=== PATIENT | male | born 1960 | race Caucasian/White ===

== ENCOUNTER → 2018-08-12 | Outpatient (CLI) | payer OTHER ==
[~2018-08-12] MED LIST: AML5 PO; AMLO-125 PO
--- NOTE | 2018-08-12 13:51 | RADIOLOGY IMAGING REPORT ---
FACILITY: [facility] - [place] PATIENT NAME: Rashaun Rogel : 1960 MR: [id number] V: [id number] EXAM DATE: ORDERING PHYSICIAN: JC CEDILLO TECHNOLOGIST: Location: [facility] Patient: Rashaun Rogel : 1960 Visit/Account:[id number] Date of Sevice: 08/12/2018 Exam type: ARTERIAL BILAT LOWER EXT History: Leg pain and hyperlipidemia Comparison: None. Findings: There is triphasic flow seen throughout the lower extremity arterial trees bilaterally Right leg peak systolic velocities in centimeters per second are as follows: DRY WALL SPRAYER 82.8 Profunda femoral 65.9 Superficial femoral proximal 99.6 Superficial femoral mid 78.2 Superficial femoral distal 84.3 Popliteal proximal 61.3 Popliteal distal 69.7 Peroneal 49.5 Posterior tibial proximal 66 Posterior tibial mid 56.4 Posterior tibial distal 66.7 Anterior tibial 52.1 Dorsalis pedis 40.3 Left leg peak systolic velocities in centimeters per second are as follows DRY WALL SPRAYER 97.8 Profunda femoral is 8.4 SFA proximal 104 SFA mid 78.8 SFA distal 75.4 Popliteal proximal 53 Popliteal healed distal 48.9 Peroneal 58.4 Posterior tibial 65.9 Posterior tibial mid 56.4 Posterior tibial distal 53 Anterior tibial 68.6 Dorsalis pedis 52.3 IMPRESSION: 1. There is triphasic flow seen throughout the lower extremity tree bilaterally with no abnormal xiomara ocities noted Report Dictated By: Zeinab Nicole MD at 08/12/2018 1:42 PM Report E-Signed By: Zeinab Nicole MD at 08/12/2018 1:45 PM WSN:[id number]
== END ==
LOC: US 00:19
PROVIDERS: ATTEND Internal Medicine
DX: I51.7 Cardiomegaly (principal); M79.606 Pain in leg, unspecified; E78.5 Hyperlipidemia, unspecified
CPT/HCPCS: 93306; 93925